=== PATIENT | female | born 1960 | race African-American/Black ===

== ENCOUNTER 2017-02-03 12:56 | Inpatient (IN) | payer OTHER ==
[2017-02-03 14:49] VITALS: BMI 24.8
--- NOTE | 2017-02-03 17:39 | HP ---
Admission ROS [facility] Chief Complaint: I WANT TO GO TO REHAB Allergies/Adverse Reactions: Allergies Allergy/AdvReac Type Severity Reaction Status Date / Time No Known Allergies Allergy Verified 02/03/17 16:03 History of Present Illness: 56 YEARS OLD FEMALE WITH LONG HISTORY OF ALCOHOL MARIJUANA COCAINE DEPENDENCE, HAS HIV, HYPERTENSION, POSITIVE PPD IS ADMITTED TO REHAB Exam Limitations: No Limitations - Ebola screening Have you traveled outside of the country in the last 21 days: No Have you had contact with anyone from an Ebola affected area: No Have you been sick,other than usual withdrawal symptoms: No Do you have a fever: No - Review of Systems Constitutional: Loss of Appetite, Unintentional Wgt. Loss EENT: reports: No Symptoms Reported Respiratory: reports: No Symptoms reported Cardiac: reports: No Symptoms Reported GI: reports: No Symptoms Reported : reports: No Symptoms Reported Musculoskeletal: reports: No Symptoms Reported Integumentary: reports: Change in Color (MULTIPLE SKIN ABRASION FROM FALL 2016) Neuro: reports: No Symptoms reported Endocrine: reports: No Symptoms Reported Hematology: reports: No Symptoms Reported Psychiatric: reports: Judgement Intact, Mood/Affect Appropiate, Orientated x3 Other Systems: Reviewed and Negative Patient History - Patient Medical History Hx Anemia: No Hx Asthma: No Hx Chronic Obstructive Pulmonary Disease (COPD): No Hx Cancer: No Hx Cardiac Disorders: No Hx Congestive Heart Failure: No Hx Hypertension: Yes Hx Hypercholesterolemia: No Hx Pacemaker: No HX Cerebrovascular Accident: No Hx Seizures: No Hx Dementia: No Hx Diabetes: No Hx Gastrointestinal Disorders: No Hx Liver Disease: No Hx Genitourinary Disorders: No Hx Sexually Transmitted Disorders: Yes (HIV + SINCE 2001) Hx Renal Disease (ESRD): No Hx Thyroid Disease: No Hx Human Immunodeficiency Virus (HIV): Yes (dx in 2001) Hx Hepatitis C: No Hx Depression: No Hx Suicide Attempt: No Hx Bipolar Disorder: No Hx Schizophrenia: No - Patient Surgical History Past Surgical History: No - PPD History Previous Implant?: Yes Documented Results: Positive w/o proof Implanted On Prior [facility] Admission?: No PPD to be Administered?: No - Reproductive History Patient is a Female of Child Bearing Age (11 -55 yrs old): Yes Last Menstrual Period: 01/06/17 Patient : No - Smoking Cessation Smoking history: Former smoker Have you smoked in the past 12 months: No Aproximately how many cigarettes per day: 0 If you are a former smoker, when did you quit?: 2009 Cigars Per Day: 0 Hx Chewing Tobacco Use: No Initiated information on smoking cessation: No - Substance & Tx. History Hx Alcohol Use: Yes Hx Substance Use: Yes Substance Use Type: Alcohol, Cocaine, Marijuana Hx Substance Use Treatment: Yes (11/2016 [facility]) - Substances Abused Alcohol Route: Oral Frequency: 1-2 times per week Amount used: 1/2 fifth of annita or rum. Age of first use: 12 Date of Last Use: 02/02/17 Crack Route: Smoking Frequency: 1-2 times per week Amount used: $50 Age of first use: 22 Date of Last Use: 02/01/17 Marijuana/Hashish Route: Smoking Frequency: 1-3 times last 30 days Amount used: 1 bag Age of first use: 15 Date of Last Use: 02/01/17 Family Disease History - Family Disease History Family Disease History: Heart Disease: Mother (htn , cad, 2nd ME@68y/o) , [place]: Father (), Other: Father, Brother (), Sister (/HIV ) Admission Physical Exam [facility] - Vital Signs Vital Signs: Vital Signs - 24 hr 02/03/17 14:46 Temperature 96.4 F L Pulse Rate 64 Respiratory 20 Rate Blood Pressure 138/91 - Physical General Appearance: Yes: No Apparent Distress, Appropriately Dressed, Thin HEENTM: Yes: Hearing grossly Normal, Normal ENT Inspection, Normocephalic, Normal Voice Respiratory: Yes: Chest Non-Tender, Lungs Clear, Normal Breath Sounds, No Respiratory Distress, No Accessory Muscle Use Neck: Yes: Supple, Trachea in good position Breast: Yes: Breasts Symetrical Cardiology: Yes: Regular Rhythm, Regular Rate, S1, S2 Abdominal: Yes: Normal Bowel Sounds, Non Tender, Soft Genitourinary: Yes: Within Normal Limits Back: Yes: Normal Inspection Musculoskeletal: Yes: full range of Motion, Gait Steady Extremities: Yes: Normal Inspection (MULTIPLE SKIN ABRASIN FROM FALL), Normal Range of Motion, Non-Tender Neurological: Yes: Fully Oriented, Alert, Motor Strength 5/5, Normal Mood/Affect , Normal Response Integumentary: Yes: Warm Lymphatic: Yes: Within Normal Limits - Diagnostic (1) Alcohol dependence with uncomplicated withdrawal Current Visit: Yes Status: Acute (2) Positive PPD, treated Current Visit: Yes Status: Resolved (3) Dry skin dermatitis Current Visit: Yes Status: Chronic (4) Skin abrasion Current Visit: Yes Status: Acute (5) Cannabis dependence, uncomplicated Current Visit: Yes Status: Chronic (6) Cocaine dependence, uncomplicated Current Visit: Yes Status: Chronic (7) HIV (human immunodeficiency virus infection) Current Visit: Yes Status: Chronic Comment: PATIENT DOES NOT HAVE HER OWN MEDICATION WITH HER UPON ADMISSION (8) HTN (hypertension) Current Visit: Yes Status: Chronic Qualifiers: Hypertension type: essential hypertension Qualified Code(s): I10 - Essential (primary) hypertension Cleared for Admission S - Detox or Rehab [facility] Level of Care: Observation Bed Detox Regimen/Protocol: Not Applicable Claeared for Rehab Admission: Yes [facility] Breath Alcohol Content Breath Alcohol Content: 0 Urine Pregancy Test - Result Urine Test Results: Negative- NO Line Present Urine Drug Screen - Results Drug Screen Negative: No Urine Drug Screen Results: THC-Marijuana, RODRICK-Cocaine Inpatient Rehab Admission - Initial Determination Are CD services needed?: Yes Free of communicable disease: Yes Not in need of hospitalization: Yes - Rehab Admission Criteria Previous failed treatment: Yes Poor recovery environment: Yes Comorbidities: Yes Lacks judgement: No Patient is meeting Inpatient Rehab admission criteria:: Yes
[2017-02-03] MEDS ORDERED: MAG HYDROX/AL HYDROX/SIMETH 30 ML UNIT-DOSE CUP PO PRN (17:44)
[2017-02-03] MEDS ORDERED: MAGNESIUM HYDROX 2400MG/30ML ORAL SUSPENSION 30 ML CUP PO PRN (17:44)
[2017-02-03] MEDS ORDERED: MAGNESIUM CITRATE 300 ML BOTTLE PO PRN (17:44)
[2017-02-03] MEDS ORDERED: LOPERAMIDE HCL 2 MG CAPSULE PO PRN (17:44)
[2017-02-03] MEDS ORDERED: P-EPHED 60MG/TRIPROLIDI 2.5MG TABLET PO PRN (17:44)
[2017-02-03] MEDS ORDERED: ACETAMINOPHEN 325 MG TABLET (FP) PO PRN (17:44)
[2017-02-03] MEDS ORDERED: guaiFENesin/D-METHORPHAN HB 10 ML UNIT-DOSE CUPS PO PRN (17:44)
[2017-02-03] MEDS ORDERED: MENTHOL/PHENOL 1 EACH UD MM PRN (17:44)
[2017-02-03] MEDS ORDERED: BACITRACIN 0.9 GM PACKET TP ONE (18:30)
[2017-02-03] MEDS ORDERED: amLODIPine BESYLATE 10 MG TABLET (FP) PO SCH (20:23)
[2017-02-03] MEDS: THIAMINE HCL 100 MG TABLET (FP) PO SCH (21:51)
[2017-02-03] MEDS: valACYclovir HCL 500 MG TABLET (FP) PO SCH (21:52)
[2017-02-03] MEDS: COLLOIDAL OATMEAL 1 BAR EACH TP PRN (21:52)
[2017-02-03] MEDS: MINERAL OIL/PETROLAT/WATER TOPICAL CREAM 113 GM JAR TP SCH (21:53)
[2017-02-03] MEDS: amLODIPine BESYLATE 10 MG TABLET (FP) PO SCH (22:17)
[2017-02-03 23:03] LABS: URINE APPEARANCE SLCLOUDY; URINE BILIRUBIN NEGATIVE (NEGATIVE); URINE BLOOD NEGATIVE (NEGATIVE); URINE COLOR YELLOW; URINE GLUCOSE (UA) NEGATIVE (NEGATIVE); URINE KETONE NEGATIVE (NEGATIVE); URINE NITRITE NEGATIVE (NEGATIVE); URINE PROTEIN NEGATIVE (NEGATIVE); URINE UROBILINOGEN NEGATIVE mg/dL (0.2-1.0)
[2017-02-04] MEDS ORDERED: amLODIPine BESYLATE 10 MG TABLET (FP) PO SCH (10:00)
[2017-02-04 10:02] LABS: MCH 30.8 pg (25.7-33.7); MCHC 32.6 g/dl (32.0-36.0); MEAN CELL VOLUME 94.4 fl (80-96); MEAN PLT VOLUME 9.2 fl (7.5-11.1); PLATELET COUNT 196 K/MM3 (134-434); RDW 14.9 % (11.6-15.6); WHITE BLOOD COUNT 6.7 K/mm3 (4.0-10.0)
[2017-02-04 10:06] LABS: ALBUMIN 3.1 g/dl (3.4-5.0); ANION GAP 6 (8-16); CALCIUM 8.4 mg/dL (8.5-10.1); CO2 29 mmol/L (21-32); GLUCOSE,RANDOM 85 mg/dL (74-106)
[2017-02-04 10:09] LABS: ALK PHOS 116 U/L (45-117); BILIRUBIN,TOTAL 0.5 mg/dL (0.2-1.0); CREATININE 0.7 mg/dL (0.55-1.02); SGOT/AST 21 U/L (15-37); SGPT/ALT 22 U/L (12-78); TOT PROT 6.6 g/dl (6.4-8.2)
[2017-02-04] MEDS: valACYclovir HCL 500 MG TABLET (FP) PO SCH ×2 (10:13→21:55)
[2017-02-04] MEDS: PRENATAL VITAMINS W/ FOLIC ACID TABLET (FP) PO SCH (10:13)
[2017-02-04] MEDS: amLODIPine BESYLATE 10 MG TABLET (FP) PO SCH (10:13)
[2017-02-04 11:46] LABS: URINE LEUK ESTERASE Negative (NEGATIVE)
[2017-02-04] MEDS ORDERED: PNEUMOC 13-VAL CONJ-DIP CRM/PF 0.5 ML DISP.SYRIN IM ONE (12:00)
[2017-02-04] MEDS ORDERED: FLU VACCINE QUAD 60 MCG/0.5 ML (MDV 17-18) IM ONE (12:00)
--- NOTE | 2017-02-04 13:08 | EKG ---
Test Reason : Blood Pressure : / mmHG Vent. Rate : 066 BPM Atrial Rate : 066 BPM P-R Int : 146 ms QRS Dur : 094 ms QT Int : 438 ms P-R-T Axes : 042 057 040 degrees QTc Int : 459 ms NORMAL SINUS RHYTHM NORMAL ECG NO PREVIOUS ECGS AVAILABLE Confirmed by SARAH STEWART MD ([id number]) on 02/04/2017 1:07:30 PM Referred By: Confirmed By:SARAH STEWART MD
--- NOTE | 2017-02-04 14:04 | PN ---
[facility] Progress Note Note: cxr + ppd cxr no active dz fu per protocol
[2017-02-04] MEDS: BACITRACIN 0.9 GM PACKET TP SCH ×2 (17:27→21:55)
[2017-02-04] MEDS: THIAMINE HCL 100 MG TABLET (FP) PO SCH (21:55)
[2017-02-04] MEDS: MINERAL OIL/PETROLAT/WATER TOPICAL CREAM 113 GM JAR TP SCH (21:58)
[2017-02-05] MEDS: PRENATAL VITAMINS W/ FOLIC ACID TABLET (FP) PO SCH (10:31)
[2017-02-05] MEDS: valACYclovir HCL 500 MG TABLET (FP) PO SCH ×2 (10:31→21:53)
[2017-02-05] MEDS: amLODIPine BESYLATE 10 MG TABLET (FP) PO SCH (10:32)
[2017-02-05] MEDS: BACITRACIN 0.9 GM PACKET TP SCH ×2 (10:32→21:53)
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
[2017-02-05] MEDS: THIAMINE HCL 100 MG TABLET (FP) PO SCH (21:53)
[2017-02-05] MEDS: MINERAL OIL/PETROLAT/WATER TOPICAL CREAM 113 GM JAR TP SCH (21:54)
[2017-02-06] MEDS: valACYclovir HCL 500 MG TABLET (FP) PO SCH ×2 (10:09→21:46)
[2017-02-06] MEDS: PRENATAL VITAMINS W/ FOLIC ACID TABLET (FP) PO SCH (10:09)
[2017-02-06] MEDS: BACITRACIN 0.9 GM PACKET TP SCH ×2 (10:09→21:46)
[2017-02-06] MEDS: amLODIPine BESYLATE 10 MG TABLET (FP) PO SCH (10:10)
[2017-02-06] MEDS ORDERED: PT OWN MED DRAWER 7, Y5N ONE (20:10)
[2017-02-06] MEDS: THIAMINE HCL 100 MG TABLET (FP) PO SCH (21:46)
[2017-02-06] MEDS: MINERAL OIL/PETROLAT/WATER TOPICAL CREAM 113 GM JAR TP SCH (21:46)
[2017-02-07] MEDS: BACITRACIN 0.9 GM PACKET TP SCH ×2 (09:28→21:42)
[2017-02-07] MEDS: valACYclovir HCL 500 MG TABLET (FP) PO SCH ×2 (09:29→21:41)
[2017-02-07] MEDS: amLODIPine BESYLATE 10 MG TABLET (FP) PO SCH (09:29)
[2017-02-07] MEDS: PRENATAL VITAMINS W/ FOLIC ACID TABLET (FP) PO SCH (09:29)
[2017-02-07] MEDS ORDERED: PT OWN MED DRAWER 7, Y5N ONE (19:20)
[2017-02-07] MEDS: THIAMINE HCL 100 MG TABLET (FP) PO SCH (21:41)
[2017-02-07] MEDS: MINERAL OIL/PETROLAT/WATER TOPICAL CREAM 113 GM JAR TP SCH (21:41)
[2017-02-08] MEDS: valACYclovir HCL 500 MG TABLET (FP) PO SCH ×2 (10:32→21:51)
[2017-02-08] MEDS: amLODIPine BESYLATE 10 MG TABLET (FP) PO SCH (10:32)
[2017-02-08] MEDS: PRENATAL VITAMINS W/ FOLIC ACID TABLET (FP) PO SCH (10:32)
[2017-02-08] MEDS: BACITRACIN 0.9 GM PACKET TP SCH ×2 (10:33→21:51)
--- NOTE | 2017-02-08 11:09 | PN ---
[facility] Progress Note (SOAP) Subjective: patient requesting restarting her genvoya but has not had it refilled since september , said she was taking it in [facility] x5 days. but had not been taking for several months Objective: 02/08/17 11:08 Vital Signs 02/08/17 02/08/17 02/08/17 03:30 06:59 09:34 Temperature 97.9 F Pulse Rate 64 92 H Respiratory 18 18 Rate Blood Pressure 116/77 134/76 Laboratory Tests 02/03/17 02/04/17 02/04/17 15:50 07:00 07:00 WBC 6.7 RBC 4.12 Hgb 12.7 Hct 38.8 MCV 94.4 MCH 30.8 MCHC 32.6 RDW 14.9 Plt Count 196 MPV 9.2 Sodium 142 Potassium 4.0 Chloride 107 Carbon Dioxide 29 Anion Gap 6 L BUN 12 D Creatinine 0.7 D Creat Clearance w eGFR > 60 Random Glucose 85 D Calcium 8.4 L Total Bilirubin 0.5 D AST 21 D ALT 22 D Alkaline Phosphatase 116 Total Protein 6.6 Albumin 3.1 L Urine Color Yellow Urine Appearance Slcloudy Urine pH 6.0 Ur Specific [place] 1.024 Urine Protein Negative Urine Glucose (UA) Negative Urine Ketones Negative Urine Blood Negative Urine Nitrite Negative Urine Bilirubin Negative Urine Urobilinogen Negative Ur Leukocyte Esterase Negative RPR Titer 02/04/17 07:00 WBC RBC Hgb Hct MCV MCH MCHC RDW Plt Count MPV Sodium Potassium Chloride Carbon Dioxide Anion Gap BUN Creatinine Creat Clearance w eGFR Random Glucose Calcium Total Bilirubin AST ALT Alkaline Phosphatase Total Protein Albumin Urine Color Urine Appearance Urine pH Ur Specific [place] Urine Protein Urine Glucose (UA) Urine Ketones Urine Blood Urine Nitrite Urine Bilirubin Urine Urobilinogen Ur Leukocyte Esterase RPR Titer Nonreactive Assessment: 02/08/17 11:08 HIV, not taking haart as prescribed for several months, discussed need to take daily, will not restart until after she returns to her HIV PCP to repeat bloodwork including resistance testing at [facility] time. Patient understands and is in agreement.
[2017-02-08] MEDS: MINERAL OIL/PETROLAT/WATER TOPICAL CREAM 113 GM JAR TP SCH (21:51)
[2017-02-08] MEDS: THIAMINE HCL 100 MG TABLET (FP) PO SCH (21:51)
[2017-02-09] MEDS: BACITRACIN 0.9 GM PACKET TP SCH ×2 (10:24→21:50)
[2017-02-09] MEDS: valACYclovir HCL 500 MG TABLET (FP) PO SCH ×2 (10:24→21:51)
[2017-02-09] MEDS: PRENATAL VITAMINS W/ FOLIC ACID TABLET (FP) PO SCH (10:24)
[2017-02-09] MEDS: amLODIPine BESYLATE 10 MG TABLET (FP) PO SCH (10:25)
[2017-02-09] MEDS: THIAMINE HCL 100 MG TABLET (FP) PO SCH (21:50)
[2017-02-09] MEDS: MINERAL OIL/PETROLAT/WATER TOPICAL CREAM 113 GM JAR TP SCH (21:50)
[2017-02-10] MEDS: amLODIPine BESYLATE 10 MG TABLET (FP) PO SCH (10:30)
[2017-02-10] MEDS: BACITRACIN 0.9 GM PACKET TP SCH ×2 (10:30→21:51)
[2017-02-10] MEDS: PRENATAL VITAMINS W/ FOLIC ACID TABLET (FP) PO SCH (10:30)
[2017-02-10] MEDS: valACYclovir HCL 500 MG TABLET (FP) PO SCH ×2 (10:30→21:51)
[2017-02-10] MEDS: MINERAL OIL/PETROLAT/WATER TOPICAL CREAM 113 GM JAR TP SCH (21:47)
[2017-02-10] MEDS: THIAMINE HCL 100 MG TABLET (FP) PO SCH (21:51)
[2017-02-10] MEDS ORDERED: PT OWN MED DRAWER 7, Y5N ONE (21:52)
[2017-02-11] MEDS: amLODIPine BESYLATE 10 MG TABLET (FP) PO SCH (10:25)
[2017-02-11] MEDS: PRENATAL VITAMINS W/ FOLIC ACID TABLET (FP) PO SCH (10:25)
[2017-02-11] MEDS: valACYclovir HCL 500 MG TABLET (FP) PO SCH ×2 (10:25→21:47)
[2017-02-11] MEDS: BACITRACIN 0.9 GM PACKET TP SCH ×2 (10:26→21:48)
[2017-02-11] MEDS: THIAMINE HCL 100 MG TABLET (FP) PO SCH (21:47)
[2017-02-11] MEDS: MINERAL OIL/PETROLAT/WATER TOPICAL CREAM 113 GM JAR TP SCH (21:48)
[2017-02-12] MEDS: PRENATAL VITAMINS W/ FOLIC ACID TABLET (FP) PO SCH (10:31)
[2017-02-12] MEDS: BACITRACIN 0.9 GM PACKET TP SCH ×2 (10:31→22:11)
[2017-02-12] MEDS: valACYclovir HCL 500 MG TABLET (FP) PO SCH ×2 (10:32→22:07)
[2017-02-12] MEDS: amLODIPine BESYLATE 10 MG TABLET (FP) PO SCH (10:32)
[2017-02-12] MEDS: COLLOIDAL OATMEAL 1 BAR EACH TP PRN (15:57)
[2017-02-12] MEDS: THIAMINE HCL 100 MG TABLET (FP) PO SCH (22:07)
[2017-02-12] MEDS: MINERAL OIL/PETROLAT/WATER TOPICAL CREAM 113 GM JAR TP SCH (22:07)
[2017-02-13] MEDS: amLODIPine BESYLATE 10 MG TABLET (FP) PO SCH (10:28)
[2017-02-13] MEDS: PRENATAL VITAMINS W/ FOLIC ACID TABLET (FP) PO SCH (10:28)
[2017-02-13] MEDS: valACYclovir HCL 500 MG TABLET (FP) PO SCH ×2 (10:28→21:49)
[2017-02-13] MEDS: BACITRACIN 0.9 GM PACKET TP SCH ×2 (10:29→21:49)
[2017-02-13] MEDS: THIAMINE HCL 100 MG TABLET (FP) PO SCH (21:49)
[2017-02-13] MEDS: MINERAL OIL/PETROLAT/WATER TOPICAL CREAM 113 GM JAR TP SCH (21:50)
[2017-02-14] MEDS: amLODIPine BESYLATE 10 MG TABLET (FP) PO SCH (10:23)
[2017-02-14] MEDS: PRENATAL VITAMINS W/ FOLIC ACID TABLET (FP) PO SCH (10:23)
[2017-02-14] MEDS: valACYclovir HCL 500 MG TABLET (FP) PO SCH ×2 (10:23→21:47)
[2017-02-14] MEDS: BACITRACIN 0.9 GM PACKET TP SCH ×2 (10:24→21:47)
[2017-02-14] MEDS: MINERAL OIL/PETROLAT/WATER TOPICAL CREAM 113 GM JAR TP SCH (21:47)
[2017-02-14] MEDS: THIAMINE HCL 100 MG TABLET (FP) PO SCH (21:47)
[2017-02-14] MEDS ORDERED: PT OWN MED DRAWER 7, Y5N ONE (21:50)
[2017-02-15] MEDS: BACITRACIN 0.9 GM PACKET TP SCH ×2 (10:31→21:46)
[2017-02-15] MEDS: PRENATAL VITAMINS W/ FOLIC ACID TABLET (FP) PO SCH (10:31)
[2017-02-15] MEDS: amLODIPine BESYLATE 10 MG TABLET (FP) PO SCH (10:31)
[2017-02-15] MEDS: valACYclovir HCL 500 MG TABLET (FP) PO SCH ×2 (10:31→21:45)
[2017-02-15] MEDS: THIAMINE HCL 100 MG TABLET (FP) PO SCH (21:46)
[2017-02-15] MEDS: MINERAL OIL/PETROLAT/WATER TOPICAL CREAM 113 GM JAR TP SCH (21:46)
[2017-02-16] MEDS: BACITRACIN 0.9 GM PACKET TP SCH ×2 (10:25→21:49)
[2017-02-16] MEDS: valACYclovir HCL 500 MG TABLET (FP) PO SCH ×2 (10:26→21:49)
[2017-02-16] MEDS: PRENATAL VITAMINS W/ FOLIC ACID TABLET (FP) PO SCH (10:26)
[2017-02-16] MEDS: amLODIPine BESYLATE 10 MG TABLET (FP) PO SCH (10:26)
[2017-02-16] MEDS: MINERAL OIL/PETROLAT/WATER TOPICAL CREAM 113 GM JAR TP SCH (21:48)
[2017-02-16] MEDS: THIAMINE HCL 100 MG TABLET (FP) PO SCH (21:49)
[2017-02-17] MEDS ORDERED: PT OWN MED DRAWER 7, Y5N ONE (08:25)
--- NOTE | 2017-02-17 08:56 | PN ---
[facility] Progress Note (SOAP) Subjective: c/o allergies, coughing sneezing congested would like claritin Objective: 02/17/17 08:55 Vital Signs - 24 hr 02/17/17 02/17/17 02/17/17 00:30 03:30 07:16 Temperature 97.8 F Pulse Rate 71 Respiratory 16 16 18 Rate Blood Pressure 109/75 Laboratory Tests 02/03/17 02/04/17 02/04/17 15:50 07:00 07:00 WBC 6.7 RBC 4.12 Hgb 12.7 Hct 38.8 MCV 94.4 MCH 30.8 MCHC 32.6 RDW 14.9 Plt Count 196 MPV 9.2 Sodium 142 Potassium 4.0 Chloride 107 Carbon Dioxide 29 Anion Gap 6 L BUN 12 D Creatinine 0.7 D Creat Clearance w eGFR > 60 Random Glucose 85 D Calcium 8.4 L Total Bilirubin 0.5 D AST 21 D ALT 22 D Alkaline Phosphatase 116 Total Protein 6.6 Albumin 3.1 L Urine Color Yellow Urine Appearance Slcloudy Urine pH 6.0 Ur Specific [place] 1.024 Urine Protein Negative Urine Glucose (UA) Negative Urine Ketones Negative Urine Blood Negative Urine Nitrite Negative Urine Bilirubin Negative Urine Urobilinogen Negative Ur Leukocyte Esterase Negative RPR Titer 02/04/17 07:00 WBC RBC Hgb Hct MCV MCH MCHC RDW Plt Count MPV Sodium Potassium Chloride Carbon Dioxide Anion Gap BUN Creatinine Creat Clearance w eGFR Random Glucose Calcium Total Bilirubin AST ALT Alkaline Phosphatase Total Protein Albumin Urine Color Urine Appearance Urine pH Ur Specific [place] Urine Protein Urine Glucose (UA) Urine Ketones Urine Blood Urine Nitrite Urine Bilirubin Urine Urobilinogen Ur Leukocyte Esterase RPR Titer Nonreactive Assessment: 02/17/17 08:56 allergies, reviewed labs start claritin and flonase
[2017-02-17] MEDS: amLODIPine BESYLATE 10 MG TABLET (FP) PO SCH (09:32)
[2017-02-17] MEDS: PRENATAL VITAMINS W/ FOLIC ACID TABLET (FP) PO SCH (09:32)
[2017-02-17] MEDS: BACITRACIN 0.9 GM PACKET TP SCH ×2 (09:32→21:51)
[2017-02-17] MEDS: valACYclovir HCL 500 MG TABLET (FP) PO SCH ×2 (09:33→21:51)
[2017-02-17] MEDS: LORATADINE 10 MG TABLET PO SCH (09:33)
[2017-02-17] MEDS: FLUTICASONE PROP 0.05% 16 GM NASAL SPRAY NS SCH (10:38)
[2017-02-17] MEDS: THIAMINE HCL 100 MG TABLET (FP) PO SCH (21:51)
[2017-02-17] MEDS: MINERAL OIL/PETROLAT/WATER TOPICAL CREAM 113 GM JAR TP SCH (21:52)
[2017-02-18] MEDS ORDERED: PT OWN MED DRAWER 7, Y5N ONE (08:42)
[2017-02-18] MEDS: FLUTICASONE PROP 0.05% 16 GM NASAL SPRAY NS SCH (10:05)
[2017-02-18] MEDS: amLODIPine BESYLATE 10 MG TABLET (FP) PO SCH (10:06)
[2017-02-18] MEDS: LORATADINE 10 MG TABLET PO SCH (10:06)
[2017-02-18] MEDS: PRENATAL VITAMINS W/ FOLIC ACID TABLET (FP) PO SCH (10:06)
[2017-02-18] MEDS: BACITRACIN 0.9 GM PACKET TP SCH ×2 (10:06→21:52)
[2017-02-18] MEDS: valACYclovir HCL 500 MG TABLET (FP) PO SCH ×2 (10:06→21:52)
[2017-02-18] MEDS: THIAMINE HCL 100 MG TABLET (FP) PO SCH (21:52)
[2017-02-18] MEDS: MINERAL OIL/PETROLAT/WATER TOPICAL CREAM 113 GM JAR TP SCH (21:53)
[2017-02-19] MEDS: BACITRACIN 0.9 GM PACKET TP SCH ×2 (10:41→22:07)
[2017-02-19] MEDS: valACYclovir HCL 500 MG TABLET (FP) PO SCH ×2 (10:41→22:07)
[2017-02-19] MEDS: amLODIPine BESYLATE 10 MG TABLET (FP) PO SCH (10:41)
[2017-02-19] MEDS: PRENATAL VITAMINS W/ FOLIC ACID TABLET (FP) PO SCH (10:41)
[2017-02-19] MEDS: LORATADINE 10 MG TABLET PO SCH (10:41)
[2017-02-19] MEDS: FLUTICASONE PROP 0.05% 16 GM NASAL SPRAY NS SCH (10:41)
[2017-02-19] MEDS ORDERED: PT OWN MED DRAWER 7, Y5N ONE (10:45)
[2017-02-19] MEDS: COLLOIDAL OATMEAL 1 BAR EACH TP PRN (18:43)
[2017-02-19] MEDS: THIAMINE HCL 100 MG TABLET (FP) PO SCH (22:07)
[2017-02-19] MEDS: MINERAL OIL/PETROLAT/WATER TOPICAL CREAM 113 GM JAR TP SCH (22:08)
[2017-02-20] MEDS ORDERED: PT OWN MED DRAWER 7, Y5N ONE (08:43)
[2017-02-20] MEDS: FLUTICASONE PROP 0.05% 16 GM NASAL SPRAY NS SCH (10:08)
[2017-02-20] MEDS: amLODIPine BESYLATE 10 MG TABLET (FP) PO SCH (10:09)
[2017-02-20] MEDS: PRENATAL VITAMINS W/ FOLIC ACID TABLET (FP) PO SCH (10:09)
[2017-02-20] MEDS: valACYclovir HCL 500 MG TABLET (FP) PO SCH ×2 (10:09→21:48)
[2017-02-20] MEDS: LORATADINE 10 MG TABLET PO SCH (10:09)
[2017-02-20] MEDS: BACITRACIN 0.9 GM PACKET TP SCH ×2 (10:09→21:48)
[2017-02-20] MEDS: IBUPROFEN 400 MG TABLET (FP) PO PRN (10:17)
[2017-02-20] MEDS: THIAMINE HCL 100 MG TABLET (FP) PO SCH (21:48)
[2017-02-20] MEDS: MINERAL OIL/PETROLAT/WATER TOPICAL CREAM 113 GM JAR TP SCH (21:50)
[2017-02-21] MEDS: FLUTICASONE PROP 0.05% 16 GM NASAL SPRAY NS SCH (09:49)
[2017-02-21] MEDS: LORATADINE 10 MG TABLET PO SCH (09:49)
[2017-02-21] MEDS: BACITRACIN 0.9 GM PACKET TP SCH ×2 (09:49→21:52)
[2017-02-21] MEDS: amLODIPine BESYLATE 10 MG TABLET (FP) PO SCH (09:50)
[2017-02-21] MEDS: PRENATAL VITAMINS W/ FOLIC ACID TABLET (FP) PO SCH (09:50)
[2017-02-21] MEDS: valACYclovir HCL 500 MG TABLET (FP) PO SCH ×2 (09:50→21:52)
[2017-02-21] MEDS: THIAMINE HCL 100 MG TABLET (FP) PO SCH (21:52)
[2017-02-21] MEDS: MINERAL OIL/PETROLAT/WATER TOPICAL CREAM 113 GM JAR TP SCH (21:52)
[2017-02-22 07:27] VITALS: TEMP 97.8
[2017-02-22] MEDS ORDERED: PT OWN MED DRAWER 7, Y5N ONE (08:39)
[2017-02-22] MEDS: BACITRACIN 0.9 GM PACKET TP SCH ×2 (10:16→21:42)
[2017-02-22] MEDS: valACYclovir HCL 500 MG TABLET (FP) PO SCH ×2 (10:16→21:42)
[2017-02-22] MEDS: PRENATAL VITAMINS W/ FOLIC ACID TABLET (FP) PO SCH (10:16)
[2017-02-22] MEDS: LORATADINE 10 MG TABLET PO SCH (10:16)
[2017-02-22] MEDS: FLUTICASONE PROP 0.05% 16 GM NASAL SPRAY NS SCH (10:17)
[2017-02-22] MEDS: amLODIPine BESYLATE 10 MG TABLET (FP) PO SCH (10:17)
[2017-02-22] MEDS: THIAMINE HCL 100 MG TABLET (FP) PO SCH (21:42)
[2017-02-22] MEDS: MINERAL OIL/PETROLAT/WATER TOPICAL CREAM 113 GM JAR TP SCH (21:43)
[2017-02-23] MEDS: FLUTICASONE PROP 0.05% 16 GM NASAL SPRAY NS SCH (10:02)
[2017-02-23] MEDS: valACYclovir HCL 500 MG TABLET (FP) PO SCH ×2 (10:02→21:53)
[2017-02-23] MEDS: BACITRACIN 0.9 GM PACKET TP SCH ×2 (10:02→21:40)
[2017-02-23] MEDS: amLODIPine BESYLATE 10 MG TABLET (FP) PO SCH (10:03)
[2017-02-23] MEDS: PRENATAL VITAMINS W/ FOLIC ACID TABLET (FP) PO SCH (10:03)
[2017-02-23] MEDS: LORATADINE 10 MG TABLET PO SCH (10:04)
[2017-02-23] MEDS: IBUPROFEN 400 MG TABLET (FP) PO PRN ×2 (10:05→23:19)
[2017-02-23] MEDS: THIAMINE HCL 100 MG TABLET (FP) PO SCH (21:53)
[2017-02-23] MEDS: MINERAL OIL/PETROLAT/WATER TOPICAL CREAM 113 GM JAR TP SCH (21:54)
[2017-02-24] MEDS: valACYclovir HCL 500 MG TABLET (FP) PO SCH (09:09)
[2017-02-24] MEDS: PRENATAL VITAMINS W/ FOLIC ACID TABLET (FP) PO SCH (09:10)
[2017-02-24] MEDS: amLODIPine BESYLATE 10 MG TABLET (FP) PO SCH (09:10)
[2017-02-24] MEDS: FLUTICASONE PROP 0.05% 16 GM NASAL SPRAY NS SCH (09:11)
[2017-02-24] MEDS: LORATADINE 10 MG TABLET PO SCH (09:11)
[2017-02-24] MEDS: BACITRACIN 0.9 GM PACKET TP SCH (09:12)
--- NOTE | 2017-02-24 09:19 | PN ---
Psychiatric Progress Note Vital Signs: Vital Signs Period Temp Pulse Resp BP Sys/[place] Pulse Ox Last 24 Hr 97.8 F 71-88 16-18 123-131/84-87 Date of Session: 02/24/17 Chief Complaint:: Discharge visit HPI: Patient ADDRESSED ALCOHOL AND COCAINE DEPENDENCE ROS: Significant for HIV+,HTN. Current Medications: Active Medications Generic Name Dose Route Start Last Admin Trade Name Freq PRN Reason Stop Dose Admin Acetaminophen 650 mg 02/03/17 17:44 Tylenol - PO Q4H PRN PAIN Al Hydroxide/Mg Hydroxide 30 ml 02/03/17 17:44 Mylanta Oral Suspension - PO Q6H PRN DYSPEPSIA Amlodipine Besylate 10 mg 02/03/17 22:15 02/24/17 09:10 Norvasc - PO 10 mg DAILY ELMRE Administration Bacitracin 0.9 gm 02/04/17 16:30 02/24/17 09:12 Bacitracin - TP Not Given BID ELMER Colloidal Oatmeal 1 applic 02/03/17 17:47 02/19/17 18:43 Aveeno Soap - TP 1 applic DAILY PRN Administration HYGEINE Eucalyptus/Menthol/Phenol/Sorbitol 1 each 02/03/17 17:44 Cepastat Lozenge - MM Q4H PRN SORE THROAT Fluticasone Propionate 2 spray 02/17/17 10:00 02/24/17 09:11 Flonase - NS 2 spray DAILY ELMER Administration Guaifenesin 10 ml 02/03/17 17:44 Robitussin Dm - PO Q6H PRN COUGH Ibuprofen 400 mg 02/03/17 17:44 02/23/17 23:19 Motrin - PO 400 mg Q6H PRN Administration SEVERE PAIN Loperamide HCl 4 mg 02/03/17 17:44 Imodium - PO Q6H PRN DIARRHEA Loratadine 10 mg 02/17/17 10:00 02/24/17 09:11 Claritin - PO 10 mg DAILY ELMER Administration Magnesium Citrate 300 ml 02/03/17 17:44 Citroma - PO Q48H PRN CONSTIPATION Magnesium Hydroxide 30 ml 02/03/17 17:44 Milk Of Magnesia - PO DAILY PRN CONSTIPATION Multi-Ingredient Lotion 1 applic 02/03/17 22:00 02/23/17 21:54 Eucerin (Small Jar) - TP 1 applic HS ELMER Administration Multivit/Folic Acid/Iron 1 tab 02/04/17 10:00 02/24/17 09:10 Vitamins ([facility]) - PO 1 tab DAILY ELMER Administration Thiamine HCl 100 mg 02/03/17 22:00 02/23/17 21:53 Vitamin B1 - PO 100 mg HS ELMER Administration Valacyclovir HCl 500 mg 02/03/17 22:00 02/24/17 09:09 Valtrex - PO 500 mg BID ELMER Administration Current Side Effect: No Lab tests ordered: No Lab tests reviewed: Yes Provider note:: Patient completed this program today.She has met her treatment goals and will continue to address her issues on outpatient basis at [facility].Patient identifies areas of difficulties and behaviors which contribute to relapse.She focuses on insight gained in treatment including importance of changing attitude and ways she plans to utilze support and coping skills to maintain recovery.Discussed importance of scheduling/keeping aftercare appointments. Patient is stable for discharge today. Total face to face time:: 30 Mental Status Exam - Mental Status Exam Alert and Oriented to: Time, Place, Person Cognitive Function: Fair, Grossly Intact Patient Appearance: Well Groomed Mood: Euthymic Affect: Appropriate, Mood Congruent Patient Behavior: Cooperative Speech Pattern: Clear Voice Loudness: Normal Thought Process: Goal Oriented Thought Disorder: Not Present Hallucinations: Denies Suicidal Ideation: Denies Homicidal Ideation: Denies Insight/Judgement: Fair Sleep: Fair Appetite: Good Muscle strength/Tone: Normal Gait/Station: Normal Psychiatric Treatment Plan - Problem List (1) HIV (human immunodeficiency virus infection) Comment: PATIENT DOES NOT HAVE HER OWN MEDICATION WITH HER UPON ADMISSION (4) HTN (hypertension) Qualifiers: Hypertension type: essential hypertension Qualified Code(s): I10 - Essential (primary) hypertension
[2017-02-24 09:25] VITALS: BP 131/88; PULSE 87
== END 2017-02-24 09:55 | disposition home or self-care (01) | DRG 772 ==
LOC: YASAS 12:56 → Y3E 16:44
PROVIDERS: ADMIT Psychiatry & Neurology Psychiatry; ATTEND Psychiatry & Neurology Psychiatry
PROC: HZ42ZZZ Group Counseling for Substance Abuse Treatment, Cognitive-Behavioral (ICD-10-PCS; principal; 2017-02-03)
DX: F10.20 Alcohol dependence, uncomplicated (principal); F14.20 Cocaine dependence, uncomplicated; F12.20 Cannabis dependence, uncomplicated; Z21 Asymptomatic human immunodeficiency virus [HIV] infection status; I10 Essential (primary) hypertension; L85.3 Xerosis cutis; R76.11 Nonspecific reaction to tuberculin skin test without active tuberculosis; J30.2 Other seasonal allergic rhinitis; Z87.891 Personal history of nicotine dependence; Z59.0 Homelessness
CPT/HCPCS: 36415; 71020-TC; 80053; 81003; 85027; 86593; 90670; 90688; 93005; 93010; G0008; G0009